=== PATIENT | male | born 1955 | race Caucasian/White ===

== ENCOUNTER 2024-01-09 13:47 | Emergency (ER) | payer BC ==
[~2024-01-09] VITALS: Ht 185.4 cm; Wt 113.6 kg
[2024-01-09] MEDS ORDERED: METO1TAB33 PO (14:15)
[2024-01-09] MEDS ORDERED: LOSA100T46 PO (14:15)
[2024-01-09] MEDS: NORCO, ANEXSIA 5/325MG TABLET (HYDROcodone/ACETAMINOPHEN) PO ONE (17:54)
[2024-01-09] MEDS ORDERED: HYDR-4571 PO (20:54)
[2024-01-09] MEDS: NORCO 5/325MG TABLET (HOME DOSE PACK) PO ONE (21:30)
[2024-01-09 21:36] VITALS: BP 184/109; TEMP 98.5; O2SAT 97
== END 2024-01-09 21:38 | disposition home or self-care (01) ==
LOC: M ED 13:47
DX: S92.022A Displaced fracture of anterior process of left calcaneus, initial encounter for closed fracture (principal); Y92.019 Unspecified place in single-family (private) house as the place of occurrence of the external cause; Y93.9 Activity, unspecified; Y99.9 Unspecified external cause status; I10 Essential (primary) hypertension; Z88.0 Allergy status to penicillin; Z79.899 Other long term (current) drug therapy